=== PATIENT | female | born 1965 | race Caucasian/White ===

== ENCOUNTER → 2017-09-29 16:01 | Outpatient (CLI) | payer OTHER, SELFPAY ==
--- NOTE | 2017-09-29 16:06 | US_ITS ---
STUDY: ULTRASOUND OF THE FEMALE PELVIS - COMPLETE REASON FOR EXAM: Female, 52 years old. Left lower quadrant pain in a postmenopausal female: TECHNIQUE: Transabdominal and Transvaginal TECHNICAL QUALITY: Adequate. COMPARISON: Pelvic ultrasound, July 23, 2016. FINDINGS: The uterus is anteverted and is in a midline position. The uterus measures 7.5 x 5.7 x 4.7 cm. Normal uterine cervix. The endometrium measures 4 mm in thickness, and is hyperechoic. There is no demonstrated endometrial mass. Multiple fibroids. The largest measures 3.5 x 4.6 x 3.7 cm is located in the anterior fundal wall. I.U.D. - The patient does not have an I.U.D. The right ovary is visualized. The right ovary measures 1.6 x 1.1 x 0.9 cm. There is no right ovarian cyst or ovarian mass. There is no visualized right adnexal mass or complex lesion. There is normal arterial and normal venous vascularity. The left ovary is visualized. The left ovary measures 2.4 x 1.9 x 1.4 cm. There are multiple follicles of the left ovary without a dominant cyst. There is no visualized left adnexal mass or complex lesion. There is normal arterial and normal venous vascularity. There is a large volume of fluid in the cul-de-sac. The pre void volume of the bladder was 2 to ml. The urinary bladder is grossly unremarkable. US/Pelvic (Non ) IMPRESSION: 1. Large fundal fibroid unchanged from prior study. There is no other evidence of uterine abnormality. 2. Normal bilateral ovaries. 3. Stable moderate free fluid in the posterior cul-de-sac. Electronically Signed: Greg Butts DO at 18:10 EST Tel [phone], Service support ,
--- NOTE | 2017-09-29 16:48 | US_ITS ---
STUDY: ULTRASOUND OF THE FEMALE PELVIS - COMPLETE REASON FOR EXAM: Female, 52 years old. Left lower quadrant pain in a postmenopausal female: TECHNIQUE: Transabdominal and Transvaginal TECHNICAL QUALITY: Adequate. COMPARISON: Pelvic ultrasound, July 23, 2016. FINDINGS: The uterus is anteverted and is in a midline position. The uterus measures 7.5 x 5.7 x 4.7 cm. Normal uterine cervix. The endometrium measures 4 mm in thickness, and is hyperechoic. There is no demonstrated endometrial mass. Multiple fibroids. The largest measures 3.5 x 4.6 x 3.7 cm is located in the anterior fundal wall. I.U.D. - The patient does not have an I.U.D. The right ovary is visualized. The right ovary measures 1.6 x 1.1 x 0.9 cm. There is no right ovarian cyst or ovarian mass. There is no visualized right adnexal mass or complex lesion. There is normal arterial and normal venous vascularity. The left ovary is visualized. The left ovary measures 2.4 x 1.9 x 1.4 cm. There are multiple follicles of the left ovary without a dominant cyst. There is no visualized left adnexal mass or complex lesion. There is normal arterial and normal venous vascularity. There is a large volume of fluid in the cul-de-sac. The pre void volume of the bladder was 2 to ml. The urinary bladder is grossly unremarkable. US/Transvaginal Non- IMPRESSION: 1. Large fundal fibroid unchanged from prior study. There is no other evidence of uterine abnormality. 2. Normal bilateral ovaries. 3. Stable moderate free fluid in the posterior cul-de-sac. Electronically Signed: Greg Butts DO at 18:10 EST Tel [phone], Service support ,
== END ==
PROVIDERS: Family Provider Internal Medicine; PCP Internal Medicine; Visit Provider Internal Medicine
DX: D25.9 Leiomyoma of uterus, unspecified (principal); R10.2 Pelvic and perineal pain
CPT/HCPCS: 76830; 76856; 93976

== ENCOUNTER → 2017-12-29 12:50 | Outpatient (CLI) | payer OTHER, SELFPAY ==
--- NOTE | 2017-12-29 12:56 | CT_ITS ---
STUDY: CT ABDOMEN AND PELVIS WITH CONTRAST REASON FOR EXAM: Female, 52 years old. Abnormal pelvic ultrasound. RADIATION DOSAGE (If Supplied By Facility): CTDIvol = ( 14.97 ) mGy, DLP = ( 487.30 ) mGycm TECHNIQUE: Transaxial images were obtained from the dome of the diaphragm to the symphysis pubis without oral contrast. 100ml ml of Isovue 300 contrast was administered. Sagittal and coronal images were reconstructed. Individualized dose optimization techniques were used for this CT. COMPARISON: May 24, 2012 and pelvic ultrasounds dated July 23, 2016 and September 29, 2017 FINDINGS: The visualized lung bases are unremarkable. The visualized portions of the heart are within normal limits. Normal liver. Normal gallbladder and extrahepatic biliary system. Normal spleen. Normal pancreas. Normal bilateral adrenal glands. Normal right kidney. Normal left kidney. Normal visualized stomach. Normal small intestine. Normal colon. There is non-visualization of the appendix. Normal abdominal aorta. Normal inferior vena cava. Normal retroperitoneum. Normal urinary bladder. Arising from the uterine fundus and extending slightly right of midline there is a 4.5 x 4.4 x 4.2 cm solid enhancing rounded focus consistent with a subserosal fibroid. There is a small amount of free fluid within the pelvis. Normal abdominal wall. There is a sclerotic focus within the left femoral neck that likely reflects underlying bone island. CT/Abdomen/Pelvis WITH Contrast IMPRESSION: 4.5 x 4.4 x 4.2 cm solid rounded focus arising from the uterine fundus with an appearance most consistent with an underlying fibroid. Electronically Signed: Renea Laguerre MD at 19:28 EDT Tel , Service support ,
== END ==
PROVIDERS: Family Provider Internal Medicine; PCP Internal Medicine; Visit Provider Internal Medicine
DX: R93.8 Abnormal findings on diagnostic imaging of other specified body structures (principal)
CPT/HCPCS: 74177; Q9967

== ENCOUNTER 2018-01-04 11:30 | Outpatient (RCR) | payer SELFPAY | END 2018-01-04 19:00 | disposition home or self-care (01) | LOC: PT 11:30 | PROVIDERS: Family Provider Internal Medicine; PCP Internal Medicine | DX: R69 Illness, unspecified (principal) ==

== ENCOUNTER → 2018-09-12 16:05 | Outpatient (CLI) | payer OTHER, SELFPAY ==
--- NOTE | 2018-09-12 16:10 | BD_ITS ---
STUDY: DUAL ENERGY X-RAY ABSORPTIOMETRY / DXA REASON FOR EXAM: Female, 53 years old. The patient is postmenopausal. No loss of height. TECHNIQUE: Bone Mineral Density (BMD) measurements of lumbar spine and bilateral hips were obtained. COMPARISON: Comparison is made with prior study dated August 26, 2016. FINDINGS: Lumbar Spine (L1-L4): g/cm2 (0.935) / T-score (-2.0) / Z-score (-1.4) Findings are suggestive of osteopenia with a moderate fracture risk. Left Femur Total: g/cm2 (0.829) / T-score (-1.4) / Z-score (-0.8) Left Femoral Neck: g/cm2 (0.823) / T-score (-1.5) / Z-score (-0.6) Right Femur Total: g/cm2 (0.845) / T-score (-1.3) / Z-score (-0.7) Right Femoral Neck: g/cm2 (0.826) / T-score (-1.5) / Z-score (-0.6) The T-Scores on the most recent prior examination were: Lumbar Spine (L1-L4): There has been worsening of bone density since the previous examination. Left Femur Total: which represents a worsening of 1%. Right Femur Total: which represents a worsening of 2.1%. BD/Dexa Bone Density Study IMPRESSION: The patient is considered osteopenic as outlined below according to World Candido Organization (WHO) criteria with a moderate fracture risk. There has been worsening of bone density since the previous examination. Reference Information: The T-score is the number of standard deviations above or below the standard which is normal for young adults at their peak bone mineral density. The World Health Organization (WHO) interprets the T-scores as follows: Above -1 Normal bone density Between -1 and -2.5 Osteopenia Equal to / or below -2.5 Osteoporosis As a practical clinical guideline, osteopenia may be graded as follows: Mild -1 through -1.5 Moderate -1.6 through -2.0 Severe -2.1 through -2.4 The Z-score is the number of standard deviations above or below age-matched controls. A Z-score of less than -1.5 would be considered abnormal. References: 1. NIH Osteoporosis and Related Bone Diseases http://www.osteo.org 2. International Society for Clinical Densitometry http://www.iscd.org 3. National Osteoporosis Foundation http://www.nof.org Electronically Signed: Chris Yoder MD at 8:50 EST , Service support ,
--- NOTE | 2018-09-12 16:30 | CT_ITS ---
STUDY: CT MAXILLOFACIAL SINUSES REASON FOR EXAM: Female, 53 years old. Sinusitis. RADIATION DOSAGE (If Supplied By Facility): CTDIvol = ( 33.06 ) mGy, DLP = ( 833.85 ) mGycm TECHNIQUE: The patient was scanned in a multi detector CT scanner. High resolution axial imaging was performed without the administration of intravenous contrast material. Sagittal and coronal images were reconstructed. Individualized dose optimization techniques were used for this CT. COMPARISON: None. FINDINGS: FRONTAL SINUSES: Normal aeration, without mucosal inflammatory disease. ETHMOIDAL SINUSES: Normal aeration, without mucosal inflammatory disease. MAXILLARY SINUSES: Normal aeration, without mucosal inflammatory disease. SPHENOIDAL SINUSES: Normal aeration, without mucosal inflammatory disease. There is patency of the bilateral maxillary infundibuli with normal uncinate processes, ethmoid bullae, and hiatus semilunaris. Normal bilateral middle turbinates. Normal bilateral inferior turbinates. Nasal septum mildly deviated to the right.. There is patency of the bilateral nasal airways. The visualized osseous structures are normal. The visualized bilateral orbital contents are normal. CT/Sinus/Facial Bone IMPRESSION: Mild nasal septal deviation otherwise normal examination of the maxillofacial sinuses. Electronically Signed: Feliciano Hernandes MD at 7:51 EST , Service support ,
== END ==
PROVIDERS: Family Provider Internal Medicine; PCP Internal Medicine; Referring Provider Otolaryngology; Visit Provider Otolaryngology
DX: Z78.0 Asymptomatic menopausal state (principal); J32.0 Chronic maxillary sinusitis
CPT/HCPCS: 70486; 77080

== ENCOUNTER 2019-08-23 14:05 | Outpatient (RCR) | payer SELFPAY ==
--- NOTE | 2019-12-11 11:15 | HP.PT.NRP ---
BARRON PEREZ was seen in my office for initial evaluation on . The following Plan of Care was established for this patient: This patient was last seen in our office . Pertinent comments regarding their Physical therapy will appear below: Self Pay DN- d/c At this point I will be discontinuing this patient from physical therapy. I would be happy to see this patient again in the future if found appropriate by the physician. Thank you! OPHELIA CostaT
== END 2019-08-23 19:00 | disposition home or self-care (01) ==
LOC: PT 14:05
PROVIDERS: PCP Internal Medicine
DX: R69 Illness, unspecified (principal)

== ENCOUNTER 2021-10-15 10:27 | Outpatient (CLI) | payer OTHER, SELFPAY ==
--- NOTE | 2021-10-15 10:31 | BD_ITS ---
STUDY: DUAL ENERGY X-RAY ABSORPTIOMETRY / DXA REASON FOR EXAM: Female, 56 years old. [id number]. The patient is postmenopausal. TECHNIQUE: Bone Mineral Density (BMD) measurements of lumbar spine and bilateral hips were obtained. COMPARISON: Comparison is made with prior study dated 09/12/2018. FINDINGS: Lumbar Spine (L1-L4): g/cm2 (0.767) / T-score (-2.5) / Z-score (-1.4) Findings are suggestive of osteopenia with a high fracture risk. Left Femur Total: g/cm2 (0.758) / T-score (-1.5) / Z-score (-0.7) Left Femoral Neck: g/cm2 (0.719) / T-score (-1.2) / Z-score (0.0) Right Femur Total: g/cm2 (0.764) / T-score (-1.5) / Z-score (-0.7) Right Femoral Neck: g/cm2 (0.625) / T-score (-2.0) / Z-score (-0.9) The T-Scores on the most recent prior examination were: Lumbar Spine (L1-L4): There has been worsening of bone density since the previous examination. Left Femur Total: which represents a worsening of 1.2%. Right Femur Total: which represents a worsening of 2.5%. BD/Dexa Bone Density Study IMPRESSION: The patient is considered osteopenic as outlined below according to World Candido Organization (WHO) criteria with a high fracture risk. There has been worsening of bone density since the previous examination. Reference Information: The T-score is the number of standard deviations above or below the standard which is normal for young adults at their peak bone mineral density. The World Health Organization (WHO) interprets the T-scores as follows: Above -1 Normal bone density Between -1 and -2.5 Osteopenia Equal to / or below -2.5 Osteoporosis As a practical clinical guideline, osteopenia may be graded as follows: Mild -1 through -1.5 Moderate -1.6 through -2.0 Severe -2.1 through -2.4 The Z-score is the number of standard deviations above or below age-matched controls. A Z-score of less than -1.5 would be considered abnormal. References: 1. NIH Osteoporosis and Related Bone Diseases www osteo.org 2. International Society for Clinical Densitometry www iscd.org 3. National Osteoporosis Foundation www nof.org Electronically Signed: Chris Yoder MD at 13:55 EDT ,
--- NOTE | 2021-10-15 10:31 | BI_ITS ---
MAMMOGRAPHY - BILATERAL SCREENING 3-D TOMOSYNTHESIS REASON FOR EXAM: Female, 56 years old. SCREENING PERTINENT HISTORY: No significant family history. TECHNIQUE: 2-D mammograms and 3-D Tomosynthesis of the breast (s) were performed. CAD was performed. COMPARISON: 04/20/2017 FINDINGS: The breast composition is Extermely dense tissue. Scattered benign calcifications are seen. 1.2 cm oval obscured equal density mass in the upper outer quadrant of the right breast at mid depth and focal compression views recommended for further evaluation. No dominant mass left breast. No suspicious calcifications.. No architectural distortion is identified. There is no skin thickening or retraction. BI/SCRN MAMM (CAD)W/COLLIN BILAT IMPRESSION: 1.2 cm oval obscured equal density mass in the upper outer quadrant of the right breast at mid depth and focal compression views recommended for further evaluation. ASSESSMENT CATEGORY: BIRADS Category 0: Incomplete. Need additional imaging evaluation as above. A letter regarding these results will be sent to the patient by the facility within 30 days. FOLLOW UP RECOMMENDATION: Additional imaging recommended as above. (E) Approximately 10% of breast cancers are not detected by mammography. A normal mammogram should not delay biopsy of a clinically suspicious abnormality. Electronically Signed: Refugio Dunlap MD at 13:03 EDT ,
== END 2021-10-15 23:59 | disposition home or self-care (01) ==
LOC: OPBD 10:28
PROVIDERS: PCP Internal Medicine; Visit Provider Internal Medicine
DX: Z13.820 Encounter for screening for osteoporosis (principal); Z78.0 Asymptomatic menopausal state; Z12.31 Encounter for screening mammogram for malignant neoplasm of breast; N63.11 Unspecified lump in the right breast, upper outer quadrant
CPT/HCPCS: 77063; 77067; 77080

== ENCOUNTER 2021-10-19 08:45 | Outpatient (CLI) | payer OTHER, SELFPAY ==
--- NOTE | 2021-10-19 08:49 | BI_ITS ---
MAMMOGRAPHY - UNILATERAL DIAGNOSTIC: RIGHT BREAST REASON FOR EXAM: Female, 56 years old. Abnormal screening mammogram. PERTINENT HISTORY: Non-contributory. TECHNIQUE: Compression spot views of the right breast were obtained. CAD: Full Field Digital Mammography with Computer Added Detection was performed. COMPARISON: Comparison is made with prior mammogram dated 10/15/2021. FINDINGS: Breast Composition: The breasts are extremely dense, which lowers the sensitivity of mammography. There are no dominant masses or suspicious calcifications. No other significant abnormalities are identified. BI/DIAG MAMM W/CAD, UNILAT IMPRESSION: Stable unilateral diagnostic mammogram. Correlation with targeted ultrasound is recommended. ASSESSMENT CATEGORY: BIRADS Category 0: Incomplete. Need additional imaging evaluation. A letter regarding these results will be sent to the patient by the facility within 30 days. Approximately 10% of breast cancers are not detected by mammography. A normal mammogram should not delay biopsy of a clinically suspicious abnormality. Electronically Signed: Chris Yoder MD at 11:18 EDT ,
--- NOTE | 2021-10-19 08:49 | US_ITS ---
STUDY: ULTRASOUND BREAST - RIGHT REASON FOR EXAM: Female, 56 years old. Abnormal screening mammogram. TECHNIQUE: Axial and longitudinal images of the RIGHT breast were performed with a high resolution ultrasound transducer. # OF IMAGES: [id number] COMPARISON: Comparison is made with prior mammogram dated 10/15/2021 and 10/19/2021. FINDINGS: RIGHT Breast: The upper outer quadrant of the right breast was examined by ultrasound. No sonographic abnormality is seen. Routine annual mammographic follow-up is recommended. US/Breast Limited Unilateral IMPRESSION: No sonographic abnormality is seen. ASSESSMENT CATEGORY: BIRADS Category 1: Negative. A letter regarding these results will be sent to the patient by the facility within 30 days. Electronically Signed: Chris Yoder MD at 15:11 EDT ,
== END 2021-10-19 23:59 | disposition home or self-care (01) ==
LOC: OPBI 08:45
PROVIDERS: PCP Internal Medicine; Visit Provider Internal Medicine
DX: R92.8 Other abnormal and inconclusive findings on diagnostic imaging of breast (principal)
CPT/HCPCS: 76642; 77065

== ENCOUNTER 2022-03-28 18:03 | Emergency (ER) | payer OTHER, SELFPAY ==
[2022-03-28 18:04] VITALS: BP 129/90; PULSE 72; RESP 16; TEMP 36.6; O2SAT 98; BMI 20.9
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
[2022-03-28 20:52] VITALS: BP 124/64; PULSE 64; RESP 18; O2SAT 100
== END 2022-03-28 20:53 | disposition home or self-care (01) ==
PROVIDERS: Emergency Provider Emergency Medicine; PCP Internal Medicine; Visit Provider Emergency Medicine
DX: S42.102A Fracture of unspecified part of scapula, left shoulder, initial encounter for closed fracture (principal); Y92.410 Unspecified street and highway as the place of occurrence of the external cause; V13.4XXA Pedal cycle driver injured in collision with car, pick-up truck or van in traffic accident, initial encounter; Y93.55 Activity, bike riding
CPT/HCPCS: 73010; 73030; 99283

== ENCOUNTER → 2022-04-06 | Outpatient (CLI) | payer OTHER, SELFPAY ==
--- NOTE | 2022-04-06 15:32 | US_ITS ---
STUDY: ULTRASOUND TRANSVAGINAL CLINICAL: Female, 57 years old. Left lower quadrant pelvic pain. Postmenopausal. TECHNIQUE: Transvaginal COMPARISON: September 29, 2017. FINDINGS: Uterus is anteverted and measures 7.3 x 6.0 x 5.1 cm. Multiple fibroids measuring 4.0 x 3.8 x 3.6 cm and 2.2 x 2.1 x 1.7 cm. At least one of these fibroids was noted previously. No IUD. Normal uterine cervix. Right ovary measures 2.2 x 1.2 x 1.1 cm and is normal. Normal vascular flow. Left ovary measures 3.2 x 3.2 x 1.9 cm and contains a simple cyst measuring 2.8 x 2.7 x 1.6 cm. Normal ovarian vascular flow. There is no free fluid in the pelvis. Polycystic ovary disease: No. US/Transvaginal Non- IMPRESSION: Uterine fibroids. 2.8 cm simple left ovarian cyst. Considerations include a physiologic cyst or less likely a benign ovarian neoplasm. This can be followed after 2-3 months or sooner if clinically warranted. If pain persists consider [employer] consult. Electronically Signed: Feliciano Hernandes MD at 2:44 EDT Reading Location ID and State: [id number] / , Service support ,
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
== END | disposition home or self-care (01) ==
PROVIDERS: PCP Internal Medicine; Referring Provider Internal Medicine; Visit Provider Internal Medicine
DX: R11.2 Nausea with vomiting, unspecified (principal); S42.109A Fracture of unspecified part of scapula, unspecified shoulder, initial encounter for closed fracture
CPT/HCPCS: 73010; 76830

== ENCOUNTER → 2022-06-21 | Outpatient (CLI) | payer OTHER, SELFPAY ==
--- NOTE | 2022-06-21 15:26 | US_ITS ---
INDICATION: Ovarian cyst EXAMINATION: Ultrasound US Transvaginal Non-OB TECHNIQUE: Transvaginal (for optimal evaluation of the adnexa) pelvic ultrasound was performed. Grayscale, spectral waveform, and color flow Doppler evaluation of the adnexa. COMPARISON: 04/06/2022 FINDINGS: UTERUS: 1. Anteverted. The uterus measures 6.9 x 5.9 x 4.5 cm. Multiple fibroids are present. Largest measures 4.1 x 4.1 x 3.5 cm, smaller measuring 2.3 x 2.6 x 1.8 cm. No fluid collection or abnormal blood flow. Nabothian cysts are present. 2. The endometrial stripe is not well visualized. No endometrial masses or fluid collections. RIGHT OVARY: 2.1 x 1.1 x 0.8 cm. Non-enlarged, normal echogenicity. There is normal arterial inflow and venous outflow present in the right ovary. LEFT OVARY: 4.3 x 4.3 x 2.0 cm.. There is a prominent anechoic cyst measuring 3.9 x 4.0 x 1.9 cm. No abnormal blood flow. No solid masses. FREE FLUID: None. US/Transvaginal Non- IMPRESSION: 1. 4.0 cm LEFT ovarian cyst. No solid masses or abnormal blood flow, no free fluid. Consider short-term follow-up in approximately 4 to 6 weeks, however considering the slight increase in size since the ultrasound dated 04/06/2022 follow-up MEDICAL ASSISTANT SECRETARY evaluation is warranted. 2. Stable fibroid uterus. Endometrium is not adequately visualized and obscured by the fibroids however no endometrial fluid collections masses or abnormal blood flow. 3. Normal sonographic appearance of the RIGHT ovary. 4. Nabothian cysts. Electronically Signed: Refugio Gaxiola MD at 18:19 EST ,
== END | disposition home or self-care (01) ==
LOC: US 15:26
PROVIDERS: PCP Internal Medicine; Referring Provider Internal Medicine; Visit Provider Internal Medicine
DX: N83.209 Unspecified ovarian cyst, unspecified side (principal)
CPT/HCPCS: 76830

== ENCOUNTER → 2022-08-03 | Outpatient (CLI) | payer OTHER, SELFPAY ==
[2022-08-06 18:26] LABS: Carcinoembryonic Antigen 0.7 ng/mL (0.0-4.7)
== END | disposition home or self-care (01) ==
LOC: PAVLAB 15:23
PROVIDERS: PCP Internal Medicine; Referring Provider Nurse Practitioner Women's Health; Visit Provider Nurse Practitioner Women's Health
DX: N83.202 Unspecified ovarian cyst, left side (principal)
CPT/HCPCS: 36415; 82378; 86304

== ENCOUNTER 2022-08-20 16:00 | Outpatient (RCR) | payer OTHER, SELFPAY ==
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
== END 2022-08-20 19:00 | disposition home or self-care (01) ==
LOC: PT 16:00
PROVIDERS: PCP Internal Medicine; Referring Provider Internal Medicine; Visit Provider Internal Medicine
DX: M54.12 Radiculopathy, cervical region (principal); M77.9 Enthesopathy, unspecified
CPT/HCPCS: 97110; 97140; 97162; 97530

== ENCOUNTER → 2022-08-24 | Outpatient (CLI) | payer OTHER, SELFPAY ==
--- NOTE | 2022-08-24 16:33 | US_ITS ---
STUDY: ULTRASOUND OF THE FEMALE PELVIS - COMPLETE REASON FOR EXAM: Female, 57 years old. OVARIAN CYST LTO LMP: TECHNIQUE: Transabdominal and transvaginal TECHNICAL QUALITY: Adequate. COMPARISON: June 21, 2022 FINDINGS: The uterus is anteverted and is in a midline position. The uterus measures 7 x 5.4 x 4.6 cm. Normal uterine cervix. Endometrial lining is not clearly visualized. There is no demonstrated endometrial mass. There are 2 fibroids measuring 4.2 x 4.1 x 3.7 cm and 2.9 x 2 x 2.2 cm. I.U.D. - The patient does not have an I.U.D. The right ovary is visualized. The right ovary measures 2.9 x 1.7 x 1.4 cm. There is no right ovarian cyst or ovarian mass. There is no visualized right adnexal mass or complex lesion. There is normal arterial and normal venous vascularity. The left ovary is visualized. The left ovary measures 2.3 x 1.8 x 1 cm. There is a cyst measuring 1.4 x 1 x 1.7 cm There is no visualized left adnexal mass or complex lesion. There is normal arterial and normal venous vascularity. There is no fluid in the cul-de-sac. The pre void volume of the bladder was 243.17 ml. No significant change in size of fibroids since prior exam. The left ovarian cyst has decreased since size US/Pelvic (Non ) IMPRESSION: Stable appearance of intrauterine fibroids Persistent small left ovarian cyst which has decreased in size since prior exam. Electronically Signed: Alvarado Cooper MD at 19:22 EST ,
== END | disposition home or self-care (01) ==
LOC: US 16:31
PROVIDERS: PCP Internal Medicine; Referring Provider Nurse Practitioner Women's Health; Visit Provider Nurse Practitioner Women's Health
DX: N83.202 Unspecified ovarian cyst, left side (principal)
CPT/HCPCS: 76830; 76856

== ENCOUNTER → 2023-12-07 | Outpatient (CLI) | payer OTHER, SELFPAY ==
--- NOTE | 2023-12-07 12:55 | US_ITS ---
INDICATION: ovarian cyst EXAMINATION: Ultrasound US Pelvis Non OB Complete With Transvaginal Imaging TECHNIQUE: Transabdominal and transvaginal pelvic ultrasound was performed. Grayscale, spectral waveform, and color flow Doppler evaluation of the adnexa. COMPARISON: None. FINDINGS: UTERUS: Anteverted. The uterus measures 7.0 x 5.4 x 4.6 cm. Fibroids are present including 3.8 x 3.4 x 3.8 cm fibroid and a 2.3 x 1.9 x 2.2 cm fibroid the endometrium is obscured. RIGHT OVARY: 3.3 x 3.4 x 2.2 cm.. RIGHT ovary is mildly enlarged contains a prominent anechoic cyst measuring 3.0 x 3.2 x 2.2 cm. No abnormal blood flow. No solid masses. LEFT OVARY: 2.7 x 2.0 x 1.6 cm.. Non-enlarged, normal echogenicity. There is normal arterial inflow and venous outflow present in the left ovary. FREE FLUID: There is a trace nonspecific fluid in the cul-de-sac. US/Pelvic (Non ) IMPRESSION: 1. Fibroid uterus, largest fibroid measures 3.8 x 3.4 x 3.8 cm. Endometrium is obscured however no endometrial fluid or abnormal blood flow. 2. Anechoic benign-appearing RIGHT ovarian cyst measuring 3.0 x 3.2 x 2.2 cm. No solid masses or abnormal blood flow. Follow-up as per the included guidelines. 3. Normal appearance of the LEFT ovary. 4. Trace nonspecific fluid in the cul-de-sac. Based on consensus guidelines, simple cysts measuring 3-7 cm in postmenopausal patients can be followed with yearly ultrasound (Radiology: Vol 256: Apr 2010, [id number]). Electronically Signed: Refugio Gaxiola MD at 22:26 EDT ,
== END | disposition home or self-care (01) ==
PROVIDERS: PCP Internal Medicine; Referring Provider Internal Medicine; Visit Provider Internal Medicine
DX: N83.209 Unspecified ovarian cyst, unspecified side (principal)
CPT/HCPCS: 76830; 76856

== ENCOUNTER → 2023-12-13 | Outpatient (CLI) | payer OTHER, SELFPAY ==
--- NOTE | 2023-12-13 12:27 | BI_ITS ---
MAMMOGRAPHY - BILATERAL SCREENING REASON FOR EXAM: Female, 58 years old. Routine annual screening examination. PERTINENT HISTORY: Aunts with breast cancer. TECHNIQUE: Digital bilateral breast collin (3D mammographic acquisition) in the CC and MLO projections. 2-D mediolateral oblique (MLO) and craniocaudad (CC) views of both breasts were obtained. CAD: Full Field Digital Mammography with Computer Added Detection was performed. COMPARISON: Comparison is made with prior study dated October 15, 2021 and October 19, 2021. FINDINGS: Breast Composition: The breasts are extremely dense, which lowers the sensitivity of mammography. There is a 7.4 mm x 8.4 mm well-defined nodule in the central medial aspect of the left breast. Correlation with ultrasound is recommended. No other significant abnormalities are identified. BI/SCRN MAMM (CAD)W/COLLIN BILAT IMPRESSION: 7.4 mm x 8.4 mm well-defined nodule in the central medial aspect of the left breast. Correlation with ultrasound is recommended. ASSESSMENT CATEGORY: BIRADS Category 0: Incomplete. Need additional imaging evaluation. A letter regarding these results will be sent to the patient by the facility within 30 days. Approximately 10% of breast cancers are not detected by mammography. A normal mammogram should not delay biopsy of a clinically suspicious abnormality. [id number] Electronically Signed: Chris Yoder MD at 13:58 EDT ,
--- NOTE | 2023-12-13 12:29 | BD_ITS ---
STUDY: DUAL ENERGY X-RAY ABSORPTIOMETRY / DXA REASON FOR EXAM: Female, 58 years old. [id number] TECHNIQUE: Bone Mineral Density (BMD) measurements of lumbar spine and bilateral hips were obtained. COMPARISON: Comparison is made with prior study October 15, 2021. FINDINGS: Lumbar Spine (L1-L4): g/cm2 (0.778) / T-score (-2.4) / Z-score (-1.1) Findings are suggestive of osteopenia with a high fracture risk. Left Femur Total: g/cm2 (0.749) / T-score (-1.6) / Z-score (-0.7) Left Femoral Neck: g/cm2 (0.667) / T-score (-1.6) / Z-score (-0.4) Right Femur Total: g/cm2 (0.762) / T-score (-1.5) / Z-score (-0.6) Right Femoral Neck: g/cm2 (0.636) / T-score (-1.9) / Z-score (-0.7) The T-Scores on the most recent prior examination were: Lumbar Spine (L1-L4): There has been improvement of bone density since the previous examination. Left Femur Total: which represents a worsening of 1.2%. Right Femur Total: which represents a worsening of 0.3%. BD/Dexa Bone Density Study IMPRESSION: The patient is considered osteopenic as outlined below according to World Candido Organization (WHO) criteria with a high fracture risk. There has been worsening of bone density since the previous examination. Reference Information: The T-score is the number of standard deviations above or below the standard which is normal for young adults at their peak bone mineral density. The World Health Organization (WHO) interprets the T-scores as follows: Above -1 Normal bone density Between -1 and -2.5 Osteopenia Equal to / or below -2.5 Osteoporosis As a practical clinical guideline, osteopenia may be graded as follows: Mild -1 through -1.5 Moderate -1.6 through -2.0 Severe -2.1 through -2.4 The Z-score is the number of standard deviations above or below age-matched controls. A Z-score of less than -1.5 would be considered abnormal. References: 1. NIH Osteoporosis and Related Bone Diseases www osteo.org 2. International Society for Clinical Densitometry www iscd.org 3. National Osteoporosis Foundation www nof.org Electronically Signed: Chris Yoder MD at 15:42 EDT ,
== END | disposition home or self-care (01) ==
PROVIDERS: PCP Internal Medicine; Referring Provider Internal Medicine; Visit Provider Internal Medicine
DX: Z13.820 Encounter for screening for osteoporosis (principal); Z78.0 Asymptomatic menopausal state; Z12.31 Encounter for screening mammogram for malignant neoplasm of breast
CPT/HCPCS: 77063; 77067; 77080

== ENCOUNTER → 2023-12-15 | Outpatient (CLI) | payer OTHER, SELFPAY ==
--- NOTE | 2023-12-15 11:01 | US_ITS ---
STUDY: ULTRASOUND BREAST - LEFT REASON FOR EXAM: Female, 58 years old. Abnormal screening mammogram. TECHNIQUE: Axial and longitudinal images of the LEFT breast were performed with a high resolution ultrasound transducer. # OF IMAGES: 25 COMPARISON: Comparison is made with prior mammogram dated December 13, 2023. FINDINGS: LEFT Breast: The central medial aspect of the left breast was examined with ultrasound. No sonographic abnormality is seen. Compression views of the left breast will be obtained for further assessment. US/Breast Limited Unilateral IMPRESSION: No sonographic abnormality is seen in the central medial aspect of the left breast on ultrasound. The patient will obtain additional mammographic images. ASSESSMENT CATEGORY: BIRADS Category 0: Incomplete. Need additional imaging evaluation. A letter regarding these results will be sent to the patient by the facility within 30 days. Electronically Signed: Chris Yoder MD at 10:06 EDT ,
--- NOTE | 2023-12-15 12:01 | BI_ITS ---
MAMMOGRAPHY - UNILATERAL DIAGNOSTIC: LEFT BREAST REASON FOR EXAM: Female, 58 years old. Abnormal screening mammogram. PERTINENT HISTORY: Aunts with breast cancer. TECHNIQUE: Compression spot views in the mediolateral oblique and craniocaudad projections of the left breast were obtained. CAD: Full Field Digital Mammography with Computer Added Detection was performed. COMPARISON: Comparison is made with prior mammogram dated December 13, 2023 and prior sonogram of the left breast done earlier in the day. FINDINGS: Breast Composition: The breasts are extremely dense, which lowers the sensitivity of mammography. There are no dominant masses or suspicious calcifications. No other significant abnormalities are identified. BI/DIAG MAMM W/CAD, UNILAT IMPRESSION: Negative unilateral diagnostic mammogram. Yearly followup mammogram recommended. (A) ASSESSMENT CATEGORY: BIRADS Category 1: Negative. A letter regarding these results will be sent to the patient by the facility within 30 days. Approximately 10% of breast cancers are not detected by mammography. A normal mammogram should not delay biopsy of a clinically suspicious abnormality. Electronically Signed: Chris Yoder MD at 12:35 EDT ,
== END | disposition home or self-care (01) ==
LOC: OPUS 10:56
PROVIDERS: PCP Internal Medicine; Referring Provider Internal Medicine; Visit Provider Internal Medicine
DX: R92.8 Other abnormal and inconclusive findings on diagnostic imaging of breast (principal)
CPT/HCPCS: 76642; 77065

== ENCOUNTER 2024-03-01 09:22 | Outpatient (RCR) | payer SELFPAY ==
--- NOTE | 2024-04-03 17:48 | HP.PT.NRP ---
Patient Information Patient Information: BARRON PEREZ was seen in my office for initial evaluation on . The following Plan of Care was established for this patient: Last Seen Last Seen: This patient was last seen in our office . Pertinent comments regarding their Physical therapy will appear below: Dry needling- d/c chart At this point I will be discontinuing this patient from physical therapy. I would be happy to see this patient again in the future if found appropriate by the physician. Thank you! OPHELIA CostaT
== END 2024-03-01 19:00 | disposition home or self-care (01) ==
LOC: PT 09:22
PROVIDERS: PCP Internal Medicine
DX: R69 Illness, unspecified (principal)

== ENCOUNTER → 2024-12-13 | Outpatient (CLI) | payer OTHER, SELFPAY ==
--- NOTE | 2024-12-13 10:03 | BI_ITS ---
EXAM: SCRN MAMM (CAD)W/COLLIN BILAT DATE: 12/13/2024 CLINICAL HISTORY: F, Age 59 y/o , BILATERAL MAMMO SCREENING - Aunts with breast cancer. BREAST CANCER RISK ASSESSMENT: Not assessed. TECHNIQUE: Bilateral screening digital breast tomosynthesis with 2D and 3D images. Computer aided detection. COMPARISON: Prior exam(s) dated December 13, 2023. FINDINGS: TISSUE DENSITY: The breast tissue is extremely dense which lowers the sensitivity of mammography. Bilateral Breast Mammographic Findings: No significant masses, calcifications or other abnormalities are identified. No suspicious masses, areas of developing architectural distortion, or suspicious calcifications. BI/SCRN MAMM (CAD)W/COLLIN BILAT IMPRESSION: OVERALL FINAL ASSESSMENT: BIRADS 1 NEGATIVE RECOMMENDATION: Routine annual follow-up in 1 Year A letter with findings and recommendations will be mailed to the patient. Reading Location: [id number]
== END | disposition home or self-care (01) ==
LOC: OPBI 10:02
PROVIDERS: PCP Internal Medicine; Referring Provider Internal Medicine; Visit Provider Internal Medicine
DX: Z12.31 Encounter for screening mammogram for malignant neoplasm of breast (principal)
CPT/HCPCS: 77063; 77067

== ENCOUNTER → 2025-02-06 | Outpatient (CLI) | payer OTHER, SELFPAY ==
--- NOTE | 2025-02-06 14:33 | US_ITS ---
PROCEDURE: PELVIC W/ TRANSVAGINAL REASON FOR EXAM: OVARIAN CYST, FIBROIDS TECHNIQUE: PELVIC W/ TRANSVAGINAL COMPARISON: Prior study dated December 07, 2023. FINDINGS: Measurements: Uterus: 7.1 cm x 5.1 cm x 4.4 cm with a volume of 82.35 mL Endometrial Thickness: Endometrium not well visualized due to fibroid uterus. Right Ovary: 2.7 cm x 1.5 cm x 1.5 cm with a volume of 3.04 mL. Left Ovary: 1.6 cm x 1.1 cm x 1.1 cm with a volume of 1 mL. TRANSABDOMINAL: Uterus: Enlarged fibroid uterus. A dominant fibroid is seen in the fundal portion of the uterus measuring 3.2 cm 2.5 cm 3.2 cm. Endometrium: Poorly visualized. Right ovary: Normal size and echotexture. Left ovary: Normal size and echotexture. Other: No large pelvic mass identified. Transvaginal sonography was performed to better visualize the endometrium. TRANSVAGINAL: Uterus: Fibroid uterus. Endometrium: Not well visualized. Right ovary: Normal size and echotexture. Left ovary: Normal size and echotexture. Other adnexal findings: None. Cul-de-sac: No free intraperitoneal fluid identified. Tenderness: No tenderness US/Pelvic w/ Transvaginal IMPRESSION: Enlarged fibroid uterus. Reading Location: [place] [id number]
== END | disposition home or self-care (01) ==
LOC: US 14:32
PROVIDERS: PCP Internal Medicine; Referring Provider Nurse Practitioner Women's Health; Visit Provider Nurse Practitioner Women's Health
DX: N83.202 Unspecified ovarian cyst, left side (principal); D25.9 Leiomyoma of uterus, unspecified
CPT/HCPCS: 76830; 76856

== ENCOUNTER → 2025-04-23 | Outpatient (CLI) | payer OTHER, SELFPAY ==
[2025-04-23 13:02] LABS: D-Dimer Quantitative (DVT/PE) 0.27 FEU/ug/m (0.27-0.49)
== END | disposition home or self-care (01) ==
PROVIDERS: PCP Internal Medicine; Referring Provider Internal Medicine; Visit Provider Internal Medicine
DX: R55 Syncope and collapse (principal)
CPT/HCPCS: 85379

== ENCOUNTER → 2025-05-16 | Outpatient (CLI) | payer OTHER, SELFPAY ==
[2025-05-16 10:17] LABS: Creatinine, Urine (random) 283.00 mg/dL (28.00-217.00)
[2025-05-16 11:02] LABS: Microalbumin,Random Urine 17.9 mg/L (<20 mg/L)
[2025-05-16 11:19] LABS: AST(SGOT) 28 U/L (<=31); Alanine Aminotransfer ALT/SGPT 22 U/L (<=34); Albumin, Serum 4.6 g/dL (3.4-4.8); Alkaline Phosphatase 43 U/L (35-104); Anion Gap 10 (5-15); BUN 18 mg/dL (4-19); BUN/Creat Ratio 20.2 RATIO (10-20); Calcium,Total 9.9 mg/dL (7.6-11.0); Carbon Dioxide 26.3 mmol/L (21.0-32.0); Chloride 105 mmol/L (98-108); Cholesterol 193 mg/dL (<=200); Globulin 2.8 g/dL (2.2-4.2); Glucose 84 mg/dL (70-99); Low Density Lipoprotein Calc. 122 mg/dL; Potassium 4.1 mmol/L (3.3-5.1); Triglycerides 72 mg/dL; Very Low Density Lipoprotein 14 mg/dL (5-40); cholesterol:hdl ratio screen 3.41
== END | disposition home or self-care (01) ==
PROVIDERS: PCP Internal Medicine; Referring Provider Internal Medicine; Visit Provider Internal Medicine
DX: E78.5 Hyperlipidemia, unspecified (principal); R73.09 Other abnormal glucose; R00.2 Palpitations
CPT/HCPCS: 36415; 80053; 80061; 82043; 82570; 83036; 93225; 93226

== ENCOUNTER → 2025-06-19 | Outpatient (CLI) | payer OTHER, SELFPAY ==
--- NOTE | 2025-06-19 07:53 | ECHOD_ITS ---
Reason For Study Reason For Study: SYNCOPE AND COLLAPSE Procedure This was a 2D Doppler, Color Flow transthoracic echocardiogram. Exam performed in department. Left Ventricle Normal LV size. Left ventricular systolic function is normal. The left ventricular ejection fraction is 65 %. No regional wall motion abnormalities noted. Right Ventricle Normal RV size. Normal systolic function. Atria Normal left atrium. Normal right atrium. Mitral Valve Bileaflet diffuse mitral valve thickening. Mild (1+) eccentric mitral valve insufficiency. Tricuspid Valve Normal tricuspid valve. Mild (1+) tricuspid valve insufficiency. Pulmonary artery systolic pressure is 20 mmHg. Pulmonic Valve Normal pulmonic valve. Great Vessels Normal aortic root. The pulmonary artery is normal size. Inferior vena cava collapse with respiration. Pericardium/Pleural No pericardial effusion. MMode/2D Measurements & Calculations LVIDd: 4.4 cm IVSd: 0.61 cm Ao root diam: 2.5 cm LVIDs: 3.1 cm LVPWd: 0.64 cm RVDd: 3.5 cm FS: 30.1 % LAV(MOD-bp): 25.0 ml LVAd ap4: 22.5 cm2 LVAd ap2: 27.3 cm2 LAV(MOD-bp) Indexed: 15.5 ml/m2 LVLd ap4: 6.9 cm LVLd ap2: 7.5 cm LAV(MOD-sp2): 27.0 ml EDV(MOD-sp4): 59.9 ml EDV(MOD-sp2): 82.6 ml LAV(MOD-sp4): 22.6 ml EDV(sp4-el): 62.1 ml EDV(sp2-el): 84.5 ml LVAs ap4: 12.5 cm2 LVAs ap2: 15.4 cm2 LVLs ap4: 5.9 cm LVLs ap2: 6.2 cm ESV(MOD-sp4): 22.5 ml ESV(MOD-sp2): 32.5 ml ESV(sp4-el): 22.3 ml ESV(sp2-el): 32.5 ml EF(MOD-sp4): 62.5 % EF(MOD-sp2): 60.7 % EF(sp4-el): 64.1 % SV(MOD-sp4): 37.4 ml SV(MOD-sp2): 50.1 ml SV(sp4-el): 39.8 ml SI(MOD-sp4): 23.1 ml/m2 SI(MOD-sp2): 31.0 ml/m2 LA A4 area: 10.8 cm2 LA dimension(2D): 2.7 cm RA A4 area: 10.1 cm2 TAPSE: 1.7 cm Time Measurements MV dec time: 0.31 sec Doppler Measurements & Calculations MV E max tyrese: 59.3 cm/sec Lat Peak E' Tyrese: 10.8 cm/sec Med Peak E' Tyrese: 6.7 cm/sec MV A max tyrese: 46.3 cm/sec E/E' lat: 5.5 E/E' med: 8.8 MV E/A: 1.3 Ao V2 max: 96.0 cm/sec LV V1 max: 80.0 cm/sec MV dec slope: 191.9 cm/sec2 Ao max P.7 mmHg LV V1 max P.6 mmHg Ao V2 mean: 64.4 cm/sec LV V1 mean P.3 mmHg Ao mean P.9 mmHg LV V1 mean: 53.6 cm/sec Ao V2 VTI: 20.2 cm LV V1 VTI: 17.4 cm AV (velocity ratio): 0.86 PA V2 max: 86.1 cm/sec TR max tyrese: 209.5 cm/sec TR max P.6 mmHg ECHO/Echo Complete Interpretation Summary Normal LV size. Left ventricular systolic function is normal. The left ventricular ejection fraction is 65 %. Structurally normal valves. Ordering Physician: Sunshine Nagy Referring Physician: Sunshine Nagy Performed By: Rice, [place]achian[place], RDCS
== END | disposition home or self-care (01) ==
LOC: CVS 07:49
PROVIDERS: PCP Internal Medicine; Referring Provider Internal Medicine; Visit Provider Internal Medicine
DX: R55 Syncope and collapse (principal)
CPT/HCPCS: 93306